=== PATIENT | female | born 1990 | race African-American/Black ===

== ENCOUNTER 2025-02-03 18:15 | Emergency (ER) | payer SELFPAY ==
[~2025-02-03] VITALS: Ht 162.6 cm; Wt 56.0 kg
[2025-02-03 18:18] VITALS: BP 111/64; PULSE 84; RESP 16; TEMP 37.1; O2SAT 99
[2025-02-03] MEDS ORDERED: IBUP-2028 MT (18:49)
[2025-02-03] MEDS ORDERED: GUAI120017 MT (18:49)
== END 2025-02-03 18:58 | disposition home or self-care (01) ==
LOC: ER 18:28
DX: F41.0 Panic disorder [episodic paroxysmal anxiety] (principal); Z79.899 Other long term (current) drug therapy
CPT/HCPCS: 99283